=== PATIENT | male | born 1960 | race Caucasian/White ===

== ENCOUNTER 2019-07-12 09:47 | Observation (INO) ==
[2019-07-12] MEDS ORDERED: Nitroglycerin 0.4 MG TAB.SUBL SL PRN (09:54)
[2019-07-12 10:34] LABS: Basophils # 0.1 K/mcL (0.0-0.2); Basophils % 0.5 %; Eosinophils # 0.4 K/mcL (0.0-0.6); Eosinophils % 3.2 %; Hematocrit 38.2 % (37.5-50.1); Hemoglobin 12.3 g/dL (12.9-16.9); Immature Granulocytes % 0.4 % (0-4); Lymphocytes # 1.8 K/mcL (0.6-4.6); Lymphocytes % 15.2 %; Mean Corpuscular HGB Conc 32.2 g/dL (31.6-35.5); Mean Corpuscular Hemoglobin 27.1 pg (28.0-33.3); Mean Corpuscular Volume 84.1 fL (83.0-100.0); Mean Platelet Volume 9.7 fL (9.4-12.4); Monocytes # 0.7 K/mcL (0.0-1.3); Neutrophils # 8.9 K/mcL (1.6-8.9); Platelet Count 248 K/mcL (140-400); Red Blood Count 4.54 M/mcL (4.19-5.50); Red Cell Distribution Width 14.7 % (11.5-14.5); Segmented Neutrophils % 74.7 %; White Blood Count 11.9 K/mcL (4.3-11.1)
[2019-07-12 10:48] LABS: BUN/Creatinine Ratio 17 (6-26); Blood Urea Nitrogen 13 mg/dL (6-20); Calcium 8.9 mg/dL (8.6-10.3); Carbon Dioxide 24 mEq/L (23-29); Chloride 104 mEq/L (98-107); Glucose 141 mg/dL (70-105); Osmolality,Calculated 286 (280-300); Potassium 3.5 mEq/L (3.5-5.1); Sodium 137 mEq/L (136-145); eGFR For African Americans > 60 (> 60); eGFR For Non-African Americans > 60 (> 60)
[2019-07-12 11:49] LABS: Troponin I < 0.03 ng/mL (< 0.04)
[2019-07-12] MEDS ORDERED: Naloxone 0.4 MG/ML INJ IVP PRN (12:33)
[2019-07-12] MEDS ORDERED: Acetaminophen 325 MG TABLET PO PRN (12:33)
[2019-07-12] MEDS ORDERED: *HR* Dextrose 50 % in Water (Syg) 50 ML SYRINGE IVP PRN (12:43)
[2019-07-12] MEDS ORDERED: D5% in Water 1,000 ML IVC PRN (12:43)
[2019-07-12] MEDS ORDERED: Dextrose Gel 15 GM/37.5 ML TUBE PO PRN ×2 (12:43)
[2019-07-12] MEDS ORDERED: Perflutren Lipid Microsphere 1.3 ML in 0.9 % Sodium Chloride 8.7 ML IVP ONE (16:28)
[2019-07-12] MEDS: Insulin LISPRO 300 UNITS/3 ML VIAL SQ SCH ×2 (16:43→21:07)
[2019-07-12] MEDS: *HR* Heparin 5,000 UNIT/ML VIAL SQ SCH ×2 (16:43→21:06)
[2019-07-13 05:19] LABS: Basophils # 0.1 K/mcL (0.0-0.2); Basophils % 0.6 %; Eosinophils # 0.4 K/mcL (0.0-0.6); Eosinophils % 5.2 %; Hematocrit 38.9 % (37.5-50.1); Hemoglobin 12.2 g/dL (12.9-16.9); Immature Granulocytes % 0.5 % (0-4); Lymphocytes # 2.8 K/mcL (0.6-4.6); Lymphocytes % 33.8 %; Mean Corpuscular HGB Conc 31.4 g/dL (31.6-35.5); Mean Corpuscular Hemoglobin 27.5 pg (28.0-33.3); Mean Corpuscular Volume 87.6 fL (83.0-100.0); Mean Platelet Volume 10.2 fL (9.4-12.4); Monocytes # 0.5 K/mcL (0.0-1.3); Monocytes % 6.5 %; Neutrophils # 4.4 K/mcL (1.6-8.9); Platelet Count 239 K/mcL (140-400); Red Blood Count 4.44 M/mcL (4.19-5.50); Red Cell Distribution Width 14.8 % (11.5-14.5); Segmented Neutrophils % 53.4 %; White Blood Count 8.3 K/mcL (4.3-11.1)
[2019-07-13 05:37] LABS: BUN/Creatinine Ratio 12 (6-26); Blood Urea Nitrogen 10 mg/dL (6-20); Calcium 9.1 mg/dL (8.6-10.3); Carbon Dioxide 25 mEq/L (23-29); Chloride 106 mEq/L (98-107); Chol/HDL Ratio 3.4 (0-4.9); Cholesterol 131 mg/dL (< 200); Glucose 120 mg/dL (70-105); HDL Cholesterol 38 mg/dL (40-59); LDL Cholesterol,Calculated 70 mg/dL (0-99); Magnesium 1.8 mg/dL (1.6-2.6); Osmolality,Calculated 286 (280-300); Potassium 3.5 mEq/L (3.5-5.1); Sodium 138 mEq/L (136-145); Triglycerides 116 mg/dL (< 150); eGFR For African Americans > 60 (> 60); eGFR For Non-African Americans > 60 (> 60)
[2019-07-13 05:49] LABS: Thyroid Stimulating Hormone 3.058 mcIU/mL (0.340-5.600)
[2019-07-13] MEDS: *HR* Heparin 5,000 UNIT/ML VIAL SQ SCH ×3 (05:55→21:23)
[2019-07-13] MEDS ORDERED: Regadenoson 0.4 MG/5 ML SYRINGE IVP ONE (06:17)
[2019-07-13 08:44] LABS: Estimated Average Glucose 131 mg/dl
[2019-07-13] MEDS: Loratadine 10 MG TABLET PO SCH (09:23)
[2019-07-13] MEDS: Insulin LISPRO 300 UNITS/3 ML VIAL SQ SCH ×4 (09:23→21:20)
[2019-07-13] MEDS: Aspirin Enteric Coated 81 MG Tablet PO SCH (09:24)
[2019-07-14 02:12] LABS: BUN/Creatinine Ratio 15 (6-26); Blood Urea Nitrogen 14 mg/dL (6-20); Calcium 9.3 mg/dL (8.6-10.3); Carbon Dioxide 26 mEq/L (23-29); Chloride 104 mEq/L (98-107); Glucose 122 mg/dL (70-105); Osmolality,Calculated 284 (280-300); Potassium 4.1 mEq/L (3.5-5.1); Sodium 136 mEq/L (136-145); eGFR For African Americans > 60 (> 60); eGFR For Non-African Americans > 60 (> 60)
[2019-07-14] MEDS: *HR* Heparin 5,000 UNIT/ML VIAL SQ SCH (05:33)
[2019-07-14 07:21] VITALS: BP 146/78
[2019-07-14] MEDS: Insulin LISPRO 300 UNITS/3 ML VIAL SQ SCH (10:24)
[2019-07-14] MEDS: Aspirin Enteric Coated 81 MG Tablet PO SCH (10:32)
[2019-07-14] MEDS: Loratadine 10 MG TABLET PO SCH (10:33)
== END 2019-07-14 12:28 | disposition home or self-care (01) ==
LOC: EMEROOARM 09:47 → 3BNU 09:47
PROVIDERS: ADMIT Internal Medicine; ATTEND Internal Medicine